=== PATIENT | male | born 1960 | race Caucasian/White ===

== ENCOUNTER → 2018-03-07 | Outpatient (CLI) | payer OTHER | END | disposition home or self-care (01) | LOC: CVU 14:34 | PROVIDERS: ATTEND Nurse Practitioner Family | DX: I07.1 Rheumatic tricuspid insufficiency (principal); I10 Essential (primary) hypertension; E78.5 Hyperlipidemia, unspecified | CPT/HCPCS: 93306 ==

== ENCOUNTER 2018-08-23 07:55 | Day surgery (SDC) | payer OTHER ==
[~2018-08-23] VITALS: Ht 170.2 cm; Wt 121.8 kg
[2018-08-23 08:27] VITALS: BP 113/73
[2018-08-23] MEDS ORDERED: VITA100C8 PO (08:48)
[2018-08-23] MEDS ORDERED: APIX5TAB PO (08:48)
[2018-08-23] MEDS ORDERED: ATOR40TA PO (08:48)
[2018-08-23] MEDS ORDERED: EMPA10TA PO (08:48)
[2018-08-23] MEDS ORDERED: DOXA4TAB3 PO (08:48)
[2018-08-23] MEDS ORDERED: DIPH25CA61 PO (08:48)
[2018-08-23] MEDS ORDERED: MUPI1OIN6 TP (08:48)
[2018-08-23] MEDS ORDERED: METO50TA82 PO (08:48)
[2018-08-23] MEDS ORDERED: LISI5TAB7 PO (08:53)
[2018-08-23 09:07] LABS: ANION GAP 8 mmol/L (5-15); CALCIUM 8.5 mg/dL (8.5-10.1); CHLORIDE 109 mmol/L (98-107); CREATININE 0.89 mg/dL (0.7-1.3)
[2018-08-23] MEDS ORDERED: PROPOFOL 10 MG/ML, 20ML ONE (09:47)
== END 2018-08-23 10:11 | disposition home or self-care (01) ==
LOC: CACL 07:55
PROVIDERS: ATTEND Internal Medicine Cardiovascular Disease
DX: I48.91 Unspecified atrial fibrillation (principal); I10 Essential (primary) hypertension; G47.33 Obstructive sleep apnea (adult) (pediatric); E11.65 Type 2 diabetes mellitus with hyperglycemia; Z86.14 Personal history of Methicillin resistant Staphylococcus aureus infection; F17.210 Nicotine dependence, cigarettes, uncomplicated; Z88.8 Allergy status to other drugs, medicaments and biological substances; Z88.2 Allergy status to sulfonamides; Z79.899 Other long term (current) drug therapy; Z79.84 Long term (current) use of oral hypoglycemic drugs
CPT/HCPCS: 36415; 80048; 92960; 93005; J2704

== ENCOUNTER → 2020-04-26 | Outpatient (CLI) | payer OTHER ==
[~2020-04-26] MED LIST: APIX5TAB PO; ATOR40TA PO; DIPH25CA61 PO; DOXA4TAB3 PO; EMPA10TA PO; LISI5TAB7 PO; METO50TA82 PO; MUPI1OIN6 TP; VITA100C10 PO
[2020-04-26 16:53] LABS: ANION GAP 4 mmol/L (5-15); CALCIUM 8.8 mg/dL (8.5-10.1); CHLORIDE 107 mmol/L (98-107); CREATININE 1.26 mg/dL (0.7-1.3)
== END | disposition home or self-care (01) ==
LOC: RAD 16:13
PROVIDERS: ATTEND Thoracic Surgery (Cardiothoracic Vascular Surgery)
DX: J92.9 Pleural plaque without asbestos (principal); I48.91 Unspecified atrial fibrillation
CPT/HCPCS: 36415; 71046; 80048; 85014; 85018

== ENCOUNTER → 2020-04-27 | Outpatient (CLI) | payer OTHER | END | disposition home or self-care (01) | LOC: STAR 11:45 | PROVIDERS: ATTEND Thoracic Surgery (Cardiothoracic Vascular Surgery) | DX: Z01.818 Encounter for other preprocedural examination (principal); I48.91 Unspecified atrial fibrillation | CPT/HCPCS: 93005 ==

== ENCOUNTER → 2020-06-11 | Outpatient (CLI) | payer OTHER | END | disposition home or self-care (01) | LOC: STAR 10:47 | PROVIDERS: ATTEND Nurse Practitioner Family | DX: Z20.822 Contact with and (suspected) exposure to COVID-19 (principal) | CPT/HCPCS: 87635 ==

== ENCOUNTER 2021-01-15 12:19 | Outpatient (CLI) | payer OTHER ==
[~2021-01-15 12:19] MED LIST changes: +COLC0.6C3 PO
[2021-01-15 13:01] LABS: ALANINE AMINOTRANSFERASE 42 U/L (12-78); ALBUMIN 4.1 g/dL (3.4-5.0); ANION GAP 5 mmol/L (5-15); CHLORIDE 108 mmol/L (98-107); CHOLESTEROL, TOTAL 157 mg/dL (140-239); CREATININE 0.75 mg/dL (0.7-1.3)
[2021-01-15 13:03] LABS: ALKALINE PHOSPHATASE 78 U/L (45-117); BILIRUBIN,TOTAL 0.7 mg/dL (0.2-1.0); CHOL/HDL RATIO 3.1; HDL CHOL % 32 % (26-37); HDL CHOLESTEROL (DIRECT) 50 mg/dL (40-60); LDL CHOLESTEROL,CALCULATED 90 mg/dL (54-169); LDL/HDL RATIO 1.8 (0.5-3.0); TOTAL PROTEIN 7.6 g/dL (6.4-8.2); TRIGLYCERIDES 86 mg/dL (50-200); VLDL CHOLESTEROL 17 mg/dL (0-25)
== END 2021-01-15 23:59 | disposition home or self-care (01) ==
LOC: LAB 12:19
PROVIDERS: ATTEND Internal Medicine Cardiovascular Disease
DX: E11.65 Type 2 diabetes mellitus with hyperglycemia (principal); A49.02 Methicillin resistant Staphylococcus aureus infection, unspecified site; B00.9 Herpesviral infection, unspecified; D69.6 Thrombocytopenia, unspecified; E78.5 Hyperlipidemia, unspecified; E66.01 Morbid (severe) obesity due to excess calories; G47.30 Sleep apnea, unspecified; G47.33 Obstructive sleep apnea (adult) (pediatric); H91.90 Unspecified hearing loss, unspecified ear; I10 Essential (primary) hypertension
CPT/HCPCS: 36415; 80053; 80061